=== PATIENT | female | born 1965 | race Caucasian/White ===

== ENCOUNTER → 2021-04-12 | Outpatient (CLI) | payer BC, OTHER | LOC: KOH-I 15:05 | DX: R05.9 Cough, unspecified (principal) | CPT/HCPCS: 71046 ==

== ENCOUNTER → 2021-06-16 | Outpatient (CLI) | payer BC, OTHER | LOC: HEART 5 09:43 | DX: J45.909 Unspecified asthma, uncomplicated (principal); R05.9 Cough, unspecified | CPT/HCPCS: 94060; 94729; 95012 ==

== ENCOUNTER → 2021-06-23 | Outpatient (CLI) | payer BC, OTHER | LOC: KOH-I 11:33 | DX: R91.1 Solitary pulmonary nodule (principal) | CPT/HCPCS: 71250 ==